=== PATIENT | male | born 2000 | race Caucasian/White ===

== ENCOUNTER 2018-07-04 05:00 | Observation (INO) | payer OTHER ==
[2018-07-04] MEDS ORDERED: HYDROmorphONE/DILAUDID 1 MG/ML INJ ONE (05:14)
[2018-07-04] MEDS ORDERED: ONDANSETRON 4 MG/2 ML VIAL ONE ×2 (05:17→08:04)
[2018-07-04] MEDS ORDERED: HYDROmorphONE/DILAUDID 2 MG/ML INJ IVP ONE (05:21)
[2018-07-04] MEDS ORDERED: ONDANSETRON 4 MG/2 ML VIAL IVP ONE (05:24)
[2018-07-04] MEDS ORDERED: NS 1,000 ML IV ONE (05:24)
[2018-07-04 05:27] LABS: PLATELET COUNT 391 10^3/uL (150-400)
--- NOTE | 2018-07-04 05:32 | EDPHY ---
H & P Stated Complaint: ABD PAIN 2 DAYS, VOMITING AND DIARRHA RLQ PAIN Time Seen by Provider: 07/04/18 05:12 HPI/ROS: Chief Complaint: Abdominal pain HPI: 18-year-old male presenting with right lower quadrant abdominal pain with associated nausea vomiting and diarrhea. Patient has had general malaise for the last 2 days. Yesterday he belt moderate generalized abdominal pain. This morning the pain got significantly worse and radiated to the right lower quadrant. He has had multiple episodes of nausea and vomiting and has had some diarrhea as well. Does not have a history of similar episodes in the past. No surgical history. Takes Adderall only several days a week. Does drink alcohol. Some marijuana use as well. ROS: 10 systems were reviewed and were negative except those elements noted in the HPI. PMH: Attention deficit hyperactivity disorder Social History: No smoking, occasional alcohol, occasional marijuana Family History: non-contributory Physical Exam: Gen: Awake, Alert, No Distress HEENT: Nose: no rhinorrhea Eyes: PERRLA, EOMI Mouth: Moist mucosa Neck: Supple, no JVD Chest: nontender, lungs clear to auscultation Heart: S1, S2 normal, no murmur Abd: Soft, moderate diffuse tenderness with voluntary guarding, more pronounced in the right lower quadrant Back: no CVA tenderness, no midline tenderness Ext: no edema, non-tender Skin: no rash Neuro: CN II-XII intact, Sensation grossly intact, Strength 5/5 in bilateral upper and lower extremities - Personal History Current Tetanus/Diphtheria Vaccine: Yes Current Tetanus Diphtheria and Acellular Pertussis (TDAP): Yes - Medical/Surgical History Hx Asthma: No Hx Chronic Respiratory Disease: No Hx Diabetes: No Hx Cardiac Disease: No Hx Renal Disease: No Hx Cirrhosis: No Hx Alcoholism: No Hx HIV/AIDS: No Hx Splenectomy or Spleen Trauma: No Other PMH: DENIES - Social History Smoking Status: Never smoked Constitutional: Initial Vital Signs Temperature (C) 36.6 C 07/04/18 05:03 Heart Rate 57 L 07/04/18 05:03 Respiratory Rate 20 07/04/18 05:03 Blood Pressure 140/81 H 07/04/18 05:03 O2 Sat (%) 100 07/04/18 05:03 O2 Delivery Mode Room Air O2 (L/minute) 2 Allergies/Adverse Reactions: No Known Allergies Allergy (Verified 07/04/18 05:06) Home Medications: Medication Instructions Recorded No Medications [NO HOME 1 ea [facility] [place] 02/26/12 MEDICATIONS] Medical Decision Making - Diagnostics Imaging Results: Ultrasound is consistent with acute appendicitis per Dr. Castanon. Imaging: Discussed imaging studies w/ bingo caller Radiologist ED Course/Re-evaluation: 18-year-old with right lower quadrant pain and ultrasound consistent with acute appendicitis. I have ordered ceftriaxone and Flagyl. I have discussed with Dr. Townsend, general surgery. He will admit the patient with planned appendectomy. - Data Points Laboratory Results: Laboratory Results 07/04/18 05:12 07/04/18 05:12 07/04/18 07/04/18 05:12 05:12 WBC 16.13 10^3/uL H 10^3/uL (3.80-9.50) RBC 5.34 10^6/uL 10^6/uL (4.40-6.38) Hgb 15.9 g/dL g/dL (13.7-17.5) Hct 44.6 % % (40.0-51.0) MCV 83.5 fL fL (81.5-99.8) MCH 29.8 pg pg (27.9-34.1) MCHC 35.7 g/dL g/dL (32.4-36.7) RDW 12.1 % % (11.5-15.2) Plt Count 391 10^3/uL 10^3/uL (150-400) MPV 10.2 fL fL (8.7-11.7) Neut % (Auto) 71.5 % % (39.3-74.2) Lymph % (Auto) 18.8 % % (15.0-45.0) Tate % (Auto) 8.1 % % (4.5-13.0) Eos % (Auto) 1.2 % % (0.6-7.6) Baso % (Auto) 0.2 % L % (0.3-1.7) Nucleat RBC Rel Count 0.0 % % (0.0-0.2) Absolute Neuts (auto) 11.53 10^3/uL H 10^3/uL (1.70-6.50) Absolute Lymphs (auto) 3.03 10^3/uL H 10^3/uL (1.00-3.00) Absolute Monos (auto) 1.30 10^3/uL H 10^3/uL (0.30-0.80) Absolute Eos (auto) 0.19 10^3/uL 10^3/uL (0.03-0.40) Absolute Basos (auto) 0.04 10^3/uL 10^3/uL (0.02-0.10) Absolute Nucleated RBC 0.00 10^3/uL 10^3/uL (0-0.01) Immature Gran % 0.2 % % (0.0-1.1) Immature Gran # 0.04 10^3/uL 10^3/uL (0.00-0.10) Sodium 140 mEq/L mEq/L (135-145) Potassium 3.6 mEq/L mEq/L (3.3-5.0) Chloride 102 mEq/L mEq/L (97-110) Carbon Dioxide 19 mEq/l L mEq/l (22-31) Anion Gap 19 mEq/L H mEq/L (8-16) BUN 16 mg/dL mg/dL (7-23) Creatinine 0.9 mg/dL mg/dL (0.7-1.3) Estimated GFR > 60 Glucose 117 mg/dL H mg/dL (70-100) Calcium 10.3 mg/dL mg/dL (8.5-10.4) Total Bilirubin 0.5 mg/dL mg/dL (0.1-1.4) AST 29 IU/L IU/L (17-59) ALT 39 IU/L IU/L (21-72) Alkaline Phosphatase 71 IU/L IU/L (38-126) Total Protein 8.7 g/dL H g/dL (6.3-8.2) Albumin 5.1 g/dL H g/dL (3.5-5.0) Lipase 51 IU/L IU/L (23-300) Medications Given: Discontinued Medications Fentanyl (Sublimaze) 50 mcg IV EDNOW ONE Stop: 07/04/18 05:45 Last Admin: 07/04/18 05:49 Dose: 50 mcg Hydromorphone HCl (Dilaudid) 1 mg IVP EDNOW ONE Stop: 07/04/18 05:22 Last Admin: 07/04/18 05:26 Dose: 1 mg Sodium Chloride (Ns) 1,000 mls @ 0 mls/hr IV EDNOW ONE; Wide Open PRN Reason: Protocol Stop: 07/04/18 05:25 Last Admin: 07/04/18 05:25 Dose: 1,000 mls Ondansetron HCl (Zofran) 4 mg IVP EDNOW ONE Stop: 07/04/18 05:25 Last Admin: 07/04/18 05:27 Dose: 4 mg Departure - Departure Disposition: [facility] Inpatient Acute Clinical Impression: Acute appendicitis Condition: Fair Referrals: NONE *PRIMARY CARE P,. [Primary Care Provider] - As per Instructions
[2018-07-04] MEDS ORDERED: fentaNYL 100 MCG/2 ML INJ IV ONE (05:44)
[2018-07-04] MEDS ORDERED: MIDAZOLAM 2 MG/2 ML VIAL IVP ONE (07:15)
--- NOTE | 2018-07-04 07:15 | PDANEPAE ---
ANE History of Present Illness acute appendicitis for lap appy ANE Past Medical History - Cardiovascular History Hx Hypertension: No Hx Arrhythmias: No Hx Chest Pain: No Hx Coronary Artery / Peripheral Vascular Disease: No Hx CHF / Valvular Disease: No Hx Palpitations: No - Pulmonary History Hx COPD: No Hx Asthma/Reactive Airway Disease: No Hx Recent Upper Respiratory Infection: No Hx Oxygen in Use at Home: No Hx Sleep Apnea: No - Endocrine History Hx Diabetes: No Obesity: no ANE Review of Systems Review of systems is: negative Review of Systems: - Exercise capacity Exercise capacity: >=4 METS ANE Patient History - Allergies Allergies/Adverse Reactions: No Known Allergies Allergy (Verified 07/04/18 05:06) - Home Medications Home medications: home medication list seen and reviewed Home Medications: Amphet Asp and D/Amphet [Adderall 10 MG (*)] 10 mg PO DAILY PRN 07/04/18 [Last Taken 06/29/18] - NPO status NPO Since - Liquids (Date): 07/04/18 NPO Since - Liquids (Time): 04:30 NPO Since - Solids (Date): 07/03/18 NPO Since - Solids (Time): 18:30 - Anes Hx Anes Hx: no prior problems - Smoking Hx Smoking Status: Never smoked ANE Labs/Vital Signs - Labs Result Diagrams: 07/04/18 05:12 07/04/18 05:12 - Vital Signs Blood Pressure: 129/79 Heart Rate: 53 Respiratory Rate: 18 O2 Sat (%): 99 Height: 172.72 cm Weight: 65.771 kg ANE Physical Exam - Airway Neck exam: FROM Mallampati Score: Class 1 Mouth exam: normal dental/mouth exam - Pulmonary Pulmonary: no respiratory distress - Cardiovascular Cardiovascular: regular rate and rhythym - ASA Status ASA Status: I, E ANE Anesthesia Plan Anesthesia Plan: general endotracheal anesthesia
[2018-07-04] MEDS ORDERED: HEPARIN 1000 UNIT/1 ML MDV ONE (07:17)
[2018-07-04] MEDS ORDERED: PROPOFOL 200 MG/20 ML VIAL ONE (07:17)
[2018-07-04] MEDS ORDERED: fentaNYL 100 MCG/2 ML INJ ONE ×2 (07:17)
[2018-07-04] MEDS ORDERED: BUPIVACAINE 0.5% 30 ML SDV ONE (07:17)
--- NOTE | 2018-07-04 07:17 | GHP ---
DATE OF ADMISSION: 07/04/2018 HISTORY OF PRESENT ILLNESS: The patient is a 18-year-old male who has had abdominal pain all night, much more severe in the last 3 hours, and located in the right lower quadrant. Ultrasound in the ER consistent with appendicitis. White count was elevated to 16,000. He is admitted at this time for l aparoscopic appendectomy. Risks and options have fully been discussed with the patient and his thue r, who wish to proceed. PAST HISTORY: Reveals no surgeries or major hospitalizations or major illnesses. REVIEW OF SYSTEMS: Negative on a full 10-point review of systems. SOCIAL HISTORY: Reveals he is a [employer] student. He does not smoke. MEDICATIONS: Adderall. ALLERGIES: None. PHYSICAL EXAMINATION: GENERAL: Reveals an alert 18-year-old male in no acute distress. He is afebr ile. HEENT: Nonicteric without adenopathy or oral lesions. NECK: Supple and nontender without thy romegaly. CHEST: Clear. COR: Regular rhythm without murmurs. ABDOMEN: Soft. He is slightly dis tended. He is very tender in the right lower quadrant with guarding and rebound. There are no herni as. GENITALIA: Normal. EXTREMITIES: Benign with full pulses. Full range of motion. NEUROLOGIC: Physiologic. PSYCH: Reveals him to be alert, oriented, and cooperative. IMPRESSION: Acute appendicitis. PLAN: Laparoscopic appendectomy. Risks and options fully discussed, and he wishes to proceed. /[id number]/MODL
[2018-07-04] MEDS ORDERED: ceFAZolin 1 GM/5 ML SYR ONE (07:18)
[2018-07-04] MEDS ORDERED: DEXAMETHASONE 4 MG/ML VIAL ONE (07:24)
[2018-07-04] MEDS ORDERED: LIDOCAINE 2% 2 ML INJ ONE (07:24)
[2018-07-04] MEDS ORDERED: SUCCINYLCHOLINE CHLORIDE 200 MG/10 ML SYR IVP ONE (07:24)
[2018-07-04] MEDS ORDERED: LR 1,000 ML IV ONE (07:45)
[2018-07-04] MEDS ORDERED: SUGAMMADEX SODIUM 200 MG/2 ML VIAL IVP ONE ×2 (08:11→08:14)
[2018-07-04] MEDS ORDERED: KETOROLAC 30 MG/1 ML SDV ONE (08:14)
[2018-07-04] MEDS ORDERED: ONDANSETRON 4 MG/2 ML VIAL IVP PRN ×2 (08:22→08:31)
[2018-07-04] MEDS ORDERED: fentaNYL 100 MCG/2 ML INJ IVP PRN (08:22)
[2018-07-04] MEDS ORDERED: LABETALOL HCL 5 MG/ML 20 ML MDV IVP PRN (08:22)
[2018-07-04] MEDS ORDERED: ALBUTEROL 3 ML DEYVIAL IH PRN (08:22)
[2018-07-04] MEDS ORDERED: METOCLOPRAMIDE 10 MG/2 ML VIAL IVP PRN (08:22)
[2018-07-04] MEDS ORDERED: HYDROCODONE/APAP 5/325 TAB PO PRN (08:22)
[2018-07-04] MEDS ORDERED: ACETAMINOPHEN 500 MG TAB PO PRN (08:22)
[2018-07-04] MEDS ORDERED: LR 500 ML IV PRN (08:22)
[2018-07-04] MEDS ORDERED: PROMETHAZINE HCL 25 MG/ML INJ IVP PRN (08:22)
[2018-07-04] MEDS ORDERED: NALOXONE HCL 0.4 MG/ML INJ IVP PRN (08:22)
[2018-07-04] MEDS ORDERED: oxyCODONE IR 5 MG TAB PO PRN (08:22)
[2018-07-04] MEDS ORDERED: HYDROmorphONE/DILAUDID 1 MG/ML INJ IVP PRN ×2 (08:22→08:31)
--- NOTE | 2018-07-04 08:22 | POSTANESTH ---
Post Anesthetic Evaluation Cardiovascular Status: Normal, Stable Respiratory Status: Normal, Stable Level of Consciousness/Mental Status: Can Participate in Eval Pain Control: Adequate, Prn Tx Ordered Nausea/Vomiting Control: Adequate, Prn Tx Ordered Complications Possibly Related to Anesthesia: None Noted
--- NOTE | 2018-07-04 08:57 | GOP ---
DATE OF OPERATION: SURGEON: Kg Townsend MD REFERRAL CLERK: Marie Horne, PAC. ANESTHESIOLOGIST: Dr. Arcos. PREOPERATIVE DIAGNOSIS: Acute appendicitis. POSTOPERATIVE DIAGNOSIS: Acute appendicitis. PROCEDURE PERFORMED: Laparoscopic appendectomy. FINDINGS: The patient was found to have acute suppurative nonperforated appendicitis. ESTIMATED BLOOD LOSS: Negligible. DESCRIPTION OF PROCEDURE: The patient was taken to the operating room where he received satisfactory general endotracheal anesthesia by Dr. Arcos. He was placed in supine position, prepped and drap ed in usual sterile fashion. An infraumbilical incision was made. A Veress needle was inserted. Pn eumoperitoneum was established. Trocar was introduced. Laparoscope introduced. Good visualization was obtained. Two other trocars were placed in the lower abdominal midline. The cecum was rotated me dially, and the appendix was elevated up. The mesoappendix was divided with the Harmonic scalpel unt il the base was skeletonized. It was then divided with the Endo-MOUNIKA stapler, placed in a specimen ba g, and extracted through the upper midline port site. The appendix was thickened and inflamed but no t perforated. Trocars were removed under direct vision. Hemostasis had been assured. Trocar sites were closed with 0 Vicryl for the fascia, 4-0 Monocryl subcuticular stitch for the skin. All layers infiltrated with 0.5% Marcaine. COMPLICATIONS: None. Taken to recovery room in good condition. /[id number]/MODL
[2018-07-04] MEDS ORDERED: DOCUSATE SODIUM 100 MG CAP PO SCH (09:00)
[2018-07-04] MEDS: OXYCODONE/APAP 5/325 TAB PO PRN ×3 (10:25→17:22)
[2018-07-04 16:09] VITALS: BP 122/73
--- NOTE | 2018-07-11 14:52 | GDS ---
DISCHARGE DIAGNOSIS: Acute appendicitis. PROCEDURES: Laparoscopic appendectomy. INTRAOPERATIVE FINDINGS: Patient was found to have acute suppurative nonperforated appendicitis. HOSPITAL COURSE: The patient is a 18-year-old male who was admitted through the emergency department with complaints of localizing progressive abdominal pain. An ultrasound suggested appendicitis. He did have an elevated white count of 16,000. He was brought to the operating room by Dr. Townsend and u sarita a laparoscopic appendectomy. The patient's postoperative course was uneventful. His pain was controlled, and his diet was advance d. He was discharged to home in stable condition later that day with plans for outpatient followup. Limitations were discussed. /[id number]/MODL
== END 2018-07-04 18:19 | disposition home or self-care (01) ==
LOC: FSGY 06:15 → UNDOADMOB 06:15 → F3E 08:30
PROVIDERS: ADMIT Surgery; ATTEND Surgery
PROC: 0DTJ4ZZ Resection of Appendix, Percutaneous Endoscopic Approach (ICD-10-PCS; principal; 2018-07-04 07:15)
DX: K35.80 Unspecified acute appendicitis (principal); E86.9 Volume depletion, unspecified; F90.1 Attention-deficit hyperactivity disorder, predominantly hyperactive type; Z23 Encounter for immunization
CPT/HCPCS: 44970; 76705; 90471; 96361; 96365; 96368; 96375; 99285; G0378; G0008; J0330; J0696; J1100; J1170; J1885; J2250; J2405; J2704; J3010